=== PATIENT | male | born 1970 | race African-American/Black ===

== ENCOUNTER 2020-06-17 05:24 | Day surgery (SDC) | payer OTHER ==
[~2020-06-17] VITALS: Ht 172.7 cm; Wt 105.7 kg
[2020-06-17] MEDS ORDERED: HYDROCHLOROTHIA25 MG (06:01)
[2020-06-17] MEDS ORDERED: MULTI-DAY VITAM1 TAB (06:02)
[2020-06-17] MEDS ORDERED: CHLOR-TRIMETON4 MG (06:02)
[2020-06-17] MEDS ORDERED: PROTONIX40 MG (06:02)
[2020-06-17] MEDS ORDERED: ACETAMINOPHEN500 M1 (06:03)
[2020-06-17] MEDS ORDERED: ASPIRIN EC81 MG (06:03)
[2020-06-17] MEDS ORDERED: COZAAR100 MG (06:04)
[2020-06-17] MEDS ORDERED: ISOSORBIDE DINI10 MG (06:04)
[2020-06-17] MEDS ORDERED: COLACE100 MG (06:05)
[2020-06-17] MEDS ORDERED: LIPITOR80 MG (06:05)
[2020-06-17 06:14] VITALS: BP 181/99; Ht 172.7 cm; Wt 105.7 kg
[2020-06-17 06:34] LABS: CALCIUM 8.6 mg/dL (8.5-10.1); CARBON DIOXIDE 32.2 mmol/L (21.0-32.0); CREATININE - SERUM 1.2 mg/dL (0.6-1.3); POTASSIUM - SERUM 4.2 mmol/L (3.5-5.1)
[2020-06-17 06:50] LABS: BASOPHILS 0.5 % (0-2); EOSINOPHILS 1.5 % (0-7); HEMATOCRIT 36.7 % (42.0-54.0); HEMOGLOBIN 12.2 g/dL (13.5-17.5); IMMATURE GRANULOCYTES 0.5 % (0-5); LYMPHOCYTE ABS# 1.06 10x3/uL (1.32-3.57); LYMPHOCYTES 26.1 % (15-50); MCH 25.6 pg (26.0-34.0); MCHC 33.2 g/dL (31.0-37.0); MCV 77.1 fL (80.0-100.0); MEAN PLATELET VOLUME 11.6 fL (7.4-10.4); MONOCYTES 9.6 % (2-11); NEUTROPHIL ABS# 2.51 10x3/uL (1.78-5.38); NEUTROPHILS 61.8 % (40-80); PLATELET COUNT 193 10x3/uL (130-400); RBC 4.76 10x6/uL (4.20-6.10); RDW 12.9 % (11.5-14.5); WBC 4.1 10x3/uL (4.8-10.8)
--- NOTE | 2020-06-17 11:58 | NUR ---
1125 PATIENT UP TO BATHROOM PER REQUEST. ENCOURAGED NOT TO STRAIN OR ATTEMPT TO HAVE A BOWEL MOVEMENT. EXPELLED PACKING INTO TOILET WITH SMALL AMOUNT OF BLEEDING NOTED. CHANGED ABD PAD AND POST OP UNDERWEAR.
--- NOTE | 2020-06-17 14:12 | NUR ---
PATIENT UP TO BATHROOM AT 1240. VOIDED AND PASSED SMALL AMOUNT OF BLOOD FROM RECTUM. STATES THAT PAIN IS BETTER NOW. IV D/C'D WITH TIP INTACT. PATIENT DRESSED AND DISCHARGE INSTRUCTIONS GIVEN AT 1300.
--- NOTE | 2020-06-18 13:19 | HP ---
PATIENT: MILTON WHITE MEDICAL RECORD: [id number] ACCOUNT: [id number] LOCATION:[facility] : 74 ADMISSION DATE: 06/17/20 PCP: No PCP HISTORY AND PHYSICAL EXAMINATION CHIEF COMPLAINT: Hemorrhoids. HISTORY OF PRESENT ILLNESS: The patient has intractably symptomatic internal and external hemorrhoids. The patient has internal hemorrhoidal bleeding. He has failed banding in the past. The risks, possible complications, and alternatives to procedure for prolapse and hemorrhoids were explained to the patient. He elects to proceed. PAST MEDICAL AND SURGICAL HISTORY: Hypertension, coronary artery disease, coronary stents, hyperlipidemia, allergies, gastroesophageal reflux. MEDICATIONS: Medicines at the [place] have been reviewed. ALLERGIES: No known drug allergies. SOCIAL HISTORY: Former smoker. PHYSICAL EXAMINATION: GENERAL: The patient does not appear acutely ill. He does not appear chronically ill. VITAL SIGNS: Reviewed. EARS: External ears appear normal. EYES: Extraocular movements are intact. NECK: Trachea is midline. CHEST: No intercostal retractions. PULMONARY: Nonlabored. No stridor. IMPRESSION: Intractably symptomatic internal and external hemorrhoids. PLAN: Will be procedure for prolapse and hemorrhoids. TRANSINT:[id number] Voice Confirmation ID: [id number] DOCUMENT ID: [id number] Cc: Sol Carrasco APN, unknown. AMISH BENNETT MD at 1319 CC: [id number] DICTATION DATE: 06/17/20 0833 DEPOSIT REFUND CLERK: 06/17/20 0909 [facility] 06/17/20 [place] [id number] [place] [id number]
--- NOTE | 2020-06-26 16:25 | OP ---
PATIENT NAME: MILTON WHITE MEDICAL RECORD: [id number] :74 LOCATION:[facility] ADMISSION DATE: SURGEON: NIRAJ BENNETT MD DATE OF OPERATION: 06/17/2020 PREOPERATIVE DIAGNOSES: 1. Bleeding internal hemorrhoids. 2. Third-degree internal hemorrhoidal prolapse. 3. Intractably symptomatic external hemorrhoids. POSTOPERATIVE DIAGNOSES: 1. Bleeding internal hemorrhoids. 2. Third-degree internal hemorrhoidal prolapse. 3. Intractably symptomatic external hemorrhoids. PROCEDURE: Procedure for prolapse and hemorrhoids. SURGEON: Niraj Bennett MD MANAGER TALENT ACQUISITION: None. BLOOD LOSS: Minimal. ANESTHESIA: General. COMPLICATIONS: None. The risks, possible complications, and alternatives of the procedure were explained to the patient. He elected to proceed. The discussion specifically included, but was not limited to, bleeding requiring emergency reoperation, infection, recurrent hemorrhoidal symptoms. OPERATIVE COURSE: The patient was conveyed to the operating room electively on 06/17/2020. General anesthesia was induced by the anesthesia staff. The patient was placed in the lithotomy position. The buttocks were taped laterally. The anus and perineum were sterilely prepped and draped. The PPH dilator retractor was placed within the anus. The retractor was sutured to the surrounding anoderm with 2-0 silks. A mucosal pursestring suture of 2-0 Prolene was applied 1 cm cephalad to the clear retractor. The PPH stapling device was inserted. The pursestring suture was then tightened and tied. The stapling device was engaged. It was held in place for 3 minutes and then fired. It was then removed under direct vision. There was an entire donut of internal hemorrhoidal and rectal mucosal tissue within the stapling device. Bleeding along the anastomotic staple line was controlled with a [id number] 3-0 Vicryl. Gelfoam was applied within the anus and lower rectum. A combination of Marcaine and a steroid preparation were used to infiltrate the perianal tissues. Americaine was then applied to the external hemorrhoids. The patient was then extubated and conveyed to post-anesthesia care unit where he was in stable condition. There is no need for the patient to follow up with me in the office unless he develops a complication related to this operative procedure. Alternatively, he could see me at the [facility] on one of my GI clinic days or we could perform a telehealth visit. TRANSINT:[id number] Voice Confirmation ID: [id number] DOCUMENT ID: [id number] OPERATIVE REPORT [id number] MILTON WHITE, NIRAJ COLVIN at 1625 CC: [id number] DICTATION DATE: 06/25/20 1610 INFORMATION SECURITY SPECIALIST: 06/25/20 2351 [facility] 06/17/20 [place] [id number]
== END 2020-06-17 13:20 | disposition home or self-care (01) ==
LOC: D.OPS 05:24
PROVIDERS: ATTEND Surgery
DX: K64.8 Other hemorrhoids (principal); K64.2 Third degree hemorrhoids; K64.4 Residual hemorrhoidal skin tags; I10 Essential (primary) hypertension; I25.10 Atherosclerotic heart disease of native coronary artery without angina pectoris; Z95.5 Presence of coronary angioplasty implant and graft; E78.5 Hyperlipidemia, unspecified; K21.9 Gastro-esophageal reflux disease without esophagitis